=== PATIENT | male | born 1985 | race Caucasian/White ===

== ENCOUNTER 2016-12-27 10:16 | Emergency (ER) | payer SELFPAY ==
[~2016-12-27] VITALS: Ht 180.3 cm; Wt 90.0 kg
[~2016-12-27 10:16] MED LIST: CIPR500T4 PO; HYDR-3533 PO; IBUP800T23 PO
[2016-12-27 10:17] VITALS: BP 122/70; PULSE 70; RESP 20; TEMP 98.5; O2SAT 98
[2016-12-27] MEDS ORDERED: SODIUM CHLORIDE 0.9% FLUSH 10 ML FLUSH IVF PRN (10:30)
[2016-12-27] MEDS ORDERED: TETANUS/DIPHTHERIA TOXOID ADULT 0.5 ML VIAL IM ONE (10:30)
[2016-12-27] MEDS ORDERED: ONDANSETRON HCL 4 MG/2 ML VIAL IV PUSH ONE (10:30)
[2016-12-27] MEDS ORDERED: MORPHINE SULFATE 8 MG/ML INJ IV PUSH ONE (10:30)
[2016-12-27] MEDS: LIDOCAINE 2%/EPINEPHrine 1:100,000 30ML MDV INFIL ONE ×2 (10:44→10:59)
[2016-12-27] MEDS ORDERED: LIDOCAINE 2%/EPINEPHrine 1:100,000 50ML MDV ONE (10:45)
--- NOTE | 2016-12-27 10:55 | PD ---
HPI . Left thigh laceration Chief Complaint: Laceration/Skin Injury Time Seen by Provider: 10:27 Travel History International Travel<30 days: No Contact w/Intl Traveler<30days: No Traveled to known affect area: No History of Present Illness HPI This patient presents with the chief complaint of a left thigh laceration. He fell off of a barge and was impaled by a piece of rebar. The injury occurred about 8:15 AM. He reports no numbness or weakness distal to the injury. His last tetanus shot was in either 2010 for 2011. He rates his pain currently as 7 /10. [facility] Past Medical History Medical History: Denies Significant Hx Diminished Hearing: No Tetanus Vaccination: > 5 Years ?: Not Past Surgical History Surgical History: No Previous Surgery Social History Alcohol Use: Yes (OCCASIONAL) Tobacco Use: Yes (E-CIGARETTE) Substance Use: No Allergies-Medications (Allergen,Severity, Reaction): Coded Allergies: No Known Allergies (Unverified , 12/27/16) Reported Meds & Prescriptions Reported Meds & Active Scripts Active No Active Prescriptions or Reported Medications Review of Systems Except as stated in HPI: all other systems reviewed are Neg Skin: Positive Other Physical Exam Narrative GENERAL: Awake and alert and in no acute distress. SKIN: Warm and dry. He has a laceration to the left medial thigh. Bleeding is controlled. HEAD: Atraumatic. Normocephalic. EYES: Pupils equal and round. NECK: Trachea midline. CARDIOVASCULAR: Regular rate and rhythm. RESPIRATORY: No accessory muscle use. MUSCULOSKELETAL: No obvious deformities. No edema. He is able to walk on his left lower extremity. NEUROLOGICAL: Awake and alert. No obvious cranial nerve deficits. Motor grossly within normal limits. Normal speech. PSYCHIATRIC: Appropriate mood and affect; insight and judgment normal. Data Data Last Documented VS Vital Signs Date Time Temp Pulse Resp B/P Pulse Ox O2 Delivery O2 Flow Rate FiO2 12/27/16 10:17 98.5 70 20 122/70 98 Room Air Orders Iv Access Insert/Monitor (12/27/16 10:29) Cefazolin Inj (Ancef Inj) (12/27/16 10:30) Sodium Chloride 0.9% Flush (Ns Flush) (12/27/16 10:30) Tetanus/Diphtheria Tox Adult (Tetanus/Di (12/27/16 10:30) Lidocai-Epi 2%-1:100,000 Inj (Xylocaine- (12/27/16 10:30) Morphine Inj (Morphine Inj) (12/27/16 10:30) Ondansetron Inj (Zofran Inj) (12/27/16 10:30) Lidocai-Epi 2%-1:100,000 Inj (Xylocaine- (12/27/16 10:45) MDM Medical Decision Making Medical Screen Exam Complete: Yes Emergency Medical Condition: Yes Differential Diagnosis Differential diagnosis includes but is not limited to skin laceration, muscular laceration, tendon laceration, neurovascular laceration. Narrative Course This patient presents with a laceration to the left thigh. The status of his tetanus immunization is questionable. Therefore, it will be updated. He will also be given a dose of Ancef. The wound will be repaired. Procedures Procedure Narrative LACERATION LOCATION: Left thigh LENGTH: 5 cm NUMBER OF STITCHES/DAVON: 5 REPAIR: The area of the laceration was prepped with Betadine and sterilely draped. The laceration was infiltrated with 10 cc of 2% lidocaine with epi. The wound was copiously irrigated and explored without evidence of foreign body, tendon injury or neurovascular injury. The wound was closed using 3-0 Prolene. This was a single layer repair. A sterile dressing was applied. The patient was advised to keep the dressing clean and dry. Patient tolerated the procedure well. Diagnosis Primary Impression: Laceration of left thigh Qualified Code: S71.112A - Laceration of left thigh, initial encounter Patient Instructions: General Instructions, Laceration (DC), Narcotic given in the ED Additional Instructions: Clean the wound twice daily with soap and water. Apply a thin layer of Neosporin ointment after you wash it. See your doctor in 10 days for suture removal. Seek care sooner for redness, drainage, warmth, unusual pain. Med/Other Pt SpecificInfo: Prescription(s) given Scripts Hydrocodone-Acetaminophen (Windfall)5-325 mg Tab1 Tab PO Q4H PRN (PAIN) #12 TAB Ref 0 Prov:Sailaja Sanchez MD 12/27/16 Ciprofloxacin (Cipro)500 Mg Dhr494 Mg PO BID 5 Days Ref 0 Prov:Sailaja Sanchez MD 12/27/16 Disposition: 01 DISCHARGE HOME Condition: Stable Sailaja Sanchez MD Dec 27, 2016 10:55
[2016-12-27] MEDS ORDERED: CIPR-9 PO (11:23)
[2016-12-27] MEDS ORDERED: NORC5TAB PO (11:23)
[2016-12-27] MEDS ORDERED: NEOMYCIN/POLYMYXIN/BACITRACIN OINT 15 GM TUBE TOPICAL ONE (11:30)
== END 2016-12-27 12:04 | disposition home or self-care (01) ==
LOC: NEPD 10:16
DX: S71.112A Laceration without foreign body, left thigh, initial encounter (principal); F17.290 Nicotine dependence, other tobacco product, uncomplicated; V89.9XXA Person injured in unspecified vehicle accident, initial encounter; Z23 Encounter for immunization
CPT/HCPCS: 12002; 90471; 90714; 96374; 96375; 99284; J0690; J2270; J2405

== ENCOUNTER 2017-01-10 12:14 | Emergency (ER) | payer SELFPAY ==
[~2017-01-10] VITALS: Ht 177.8 cm; Wt 90.0 kg
[~2017-01-10 12:14] MED LIST changes: +CIPR-9 PO; -CIPR500T4 PO; -HYDR-3533 PO; -IBUP800T23 PO; +NORC5TAB PO
[2017-01-10 12:16] VITALS: BP 127/72; PULSE 101; RESP 20; O2SAT 97
--- NOTE | 2017-01-10 12:25 | PD ---
Physical Exam Date Seen by Provider: Jan 10, 2017 Time Seen by Provider: 12:23 Narrative 31 y/o male here for Follow-up sutures to right inner thigh area due to laceration 10 days ago. pain 12/13 Vital signs reviewed. Patient stable. Awaiting Bed placement. Data Data Last Documented VS Vital Signs Date Time Temp Pulse Resp B/P Pulse Ox O2 Delivery O2 Flow Rate FiO2 01/10/17 12:16 101 20 127/72 97 MDM Medical Record Reviewed: Yes Supervised Visit with WILLIAM: Yes Condition: Stable Pravin Quinn Jan 10, 2017 12:25
--- NOTE | 2017-01-10 12:42 | PD ---
HPI Chief Complaint: Wound/Suture/Staple Re-Check Time Seen by Provider: 12:40 Travel History International Travel<30 days: No Contact w/Intl Traveler<30days: No Traveled to known affect area: No History of Present Illness HPI 31-year-old male presents to emergency department requesting suture removal to left medial thigh laceration that was repaired 10 days ago. He denies fever, vomiting. Denies change from the wound site. Has been taking Tylenol and ibuprofen for symptom management. Symptoms are mild in severity. Has no other medical complaints. Denies allergies. No other modifying factors or associated signs and symptoms. PFS Past Medical History Medical History: Denies Significant Hx Diminished Hearing: No Tetanus Vaccination: < 5 Years ?: Not Past Surgical History Surgical History: No Previous Surgery Social History Alcohol Use: No Tobacco Use: Yes (1 PPD) Substance Use: Yes (MARIJUANA) Allergies-Medications (Allergen,Severity, Reaction): Coded Allergies: No Known Allergies (Unverified , 01/10/17) Reported Meds & Prescriptions Reported Meds & Active Scripts Active No Active Prescriptions or Reported Medications Review of Systems Except as stated in HPI: all other systems reviewed are Neg Physical Exam Narrative GENERAL: Well-nourished, well-developed male patient, in no acute distress SKIN: Warm and dry. Left medial thigh with laceration that is well approximated and sutures intact; without erythema, edema, drainage. No signs of infection. HEAD: Atraumatic. Normocephalic. EYES: Pupils equal and round. No scleral icterus. No injection or drainage. ENT: Mucosa pink and moist. Airway patent. NECK: Trachea midline. CARDIOVASCULAR: Regular rate. RESPIRATORY: No accessory muscle use. GASTROINTESTINAL: Rounded. MUSCULOSKELETAL: No obvious deformities. No clubbing. No cyanosis. No edema. NEUROLOGICAL: Awake and alert. Oriented 3. No obvious cranial nerve deficits. Motor grossly within normal limits. Normal speech. PSYCHIATRIC: Appropriate mood and affect; insight and judgment normal. Data Data Last Documented VS Vital Signs Date Time Temp Pulse Resp B/P Pulse Ox O2 Delivery O2 Flow Rate FiO2 01/10/17 12:16 101 20 127/72 97 MDM Medical Decision Making Medical Screen Exam Complete: Yes Emergency Medical Condition: Yes Medical Record Reviewed: Yes Differential Diagnosis Suture removal, staple removal, wound recheck Narrative Course 31-year-old male presents for suture removal of his left medial thigh. Sutures been in place for 10 days. Denies fever, vomiting. There are no signs of infection to the wound site. Sutures removed. Steri-Strips placed and instructed patient to keep them in place for approximately one week. Patient verbalized understanding and agreement. Instructed patient to follow up with primary care provider. Patient verbalizes understanding and agreement with treatment plan. Patient is medically cleared and stable for discharge. Discussed reasons to return to the emergency department. Patient agrees with treatment plan. The patients vital signs are stable and the patient is stable for outpatient follow-up and treatment. Patient discharged home, stable and in no acute distress. Diagnosis Primary Impression: Encounter for removal of sutures Referrals: Primary Care Physician Patient Instructions: Acute Wound Care (ED), General Instructions, Steristrips (ED) Additional Instructions: Ibuprofen or Tylenol as instructed and nausea for pain and inflammation Keep area clean and dry Remove Steri-Strips in approximately one week Follow-up with primary care provider Return to the emergency department immediately with worsening of symptoms Scripts No Active Prescriptions or Reported Meds Disposition: 01 DISCHARGE HOME Condition: Stable Amaya Echeverria Jan 10, 2017 12:42
== END 2017-01-10 13:06 | disposition home or self-care (01) ==
LOC: NEPK 12:14
DX: Z48.02 Encounter for removal of sutures (principal); F12.10 Cannabis abuse, uncomplicated; F17.290 Nicotine dependence, other tobacco product, uncomplicated
CPT/HCPCS: 99281